=== PATIENT | female | born 1960 | race Caucasian/White ===

== ENCOUNTER 2017-02-14 00:56 | Inpatient (IN) ==
[2017-02-14] MEDS ORDERED: ONDANSETRON 4 MG/2 ML VIAL IV STA ×2 (02:12→03:22)
[2017-02-14] MEDS ORDERED: SODIUM CHLORIDE 0.9% 1,000 ML IV STA (02:12)
[2017-02-14] MEDS ORDERED: ONDANSETRON 4 MG/2 ML VIAL ONE ×2 (02:19→03:22)
[2017-02-14 02:29] LABS: Calcium 9.6 MG/DL (8.5-10.1); Magnesium 2.1 MG/DL (1.8-2.4); Osmolality,Calculated 277.7 MOS/KG (273-304); Potassium 3.3 MMOL/L (3.5-5.1)
[2017-02-14 02:31] LABS: Basophils % 0.3 % (0.0-0.8); Eosinophils % 0.1 % (0.00-10.9); Hemoglobin 15.8 GM/DL (12.0-16.0); Immature Granulocytes % 0.3 %; Immature Granulocytes Absolute 0.04 #; Lymphocytes # 3.3 10*3/uL (1.4-4.0); Lymphocytes % 22.4 % (21.3-54.2); Mean Corpuscular HGB Conc 34.3 GM/DL (32-36); Mean Corpuscular Hemoglobin 30 PG (27-34); Mean Platelet Volume 8.9 FL (9.6-12.0); Monocytes # 0.9 10*3/uL (0.11-0.8); Monocytes % 6.3 % (1.7-12.7); Neutrophils # 10.3 10*3/uL (1.4-7.4); Neutrophils % 70.6 % (38.7-73.9); Platelet Count 600 T/CUMM (130-400); Red Blood Count 5.35 MC/CUMM (3.8-5.5); Red Cell Distribution Width 13.6 % (9.3-17.3); White Blood Count 14.6 T/CUMM (4-12)
[2017-02-14] MEDS: SODIUM CHLORIDE 0.9% 1,000 ML IV SCH ×3 (05:39→23:24)
[2017-02-14] MEDS: POTASSIUM CHLORIDE INJ 10 MEQ in SODIUM CHLORIDE 0.45% 1,000 ML IV SCH ×2 (05:39→16:10)
[2017-02-14] MEDS: KETOROLAC 30 MG/1 ML VIAL IV PRN ×3 (05:48→18:31)
[2017-02-14] MEDS: ONDANSETRON 4 MG/2 ML VIAL IV PRN ×3 (09:59→21:00)
[2017-02-14] MEDS ORDERED: MAGNESIUM SULF RIDER 2 GM in PREMIX 1 EACH IV PRN (14:31)
[2017-02-14] MEDS ORDERED: MAGNESIUM SULF RIDER 4 GM in PREMIX 1 EACH IV PRN (14:31)
[2017-02-14] MEDS: MEROPENEM 1,000 MG in SYRINGE 1 EACH IV SCH (18:25)
[2017-02-14] MEDS: metroNIDAZOLE INJ 500 MG in PREMIX 1 EACH IV SCH ×2 (18:38→21:43)
[2017-02-15] MEDS: KETOROLAC 30 MG/1 ML VIAL IV PRN ×4 (00:31→20:33)
[2017-02-15] MEDS: MEROPENEM 1,000 MG in SYRINGE 1 EACH IV SCH ×3 (00:31→15:01)
[2017-02-15] MEDS: ONDANSETRON 4 MG/2 ML VIAL IV PRN ×5 (01:52→22:32)
[2017-02-15] MEDS: POTASSIUM CHLORIDE INJ 10 MEQ in SODIUM CHLORIDE 0.45% 1,000 ML IV SCH ×2 (02:34→09:11)
[2017-02-15] MEDS: metroNIDAZOLE INJ 500 MG in PREMIX 1 EACH IV SCH ×4 (03:05→20:35)
[2017-02-15] MEDS: SODIUM CHLORIDE 0.9% 1,000 ML IV SCH (04:42)
[2017-02-15 05:42] LABS: Basophils % 0.3 % (0.0-0.8); Eosinophils % 0.2 % (0.00-10.9); Hematocrit 38.9 VOL% (35.7-47.0); Hemoglobin 13.8 GM/DL (12.0-16.0); Immature Granulocytes % 0.3 %; Immature Granulocytes Absolute 0.04 #; Lymphocytes # 3.2 10*3/uL (1.4-4.0); Lymphocytes % 27.3 % (21.3-54.2); Mean Corpuscular HGB Conc 35.5 GM/DL (32-36); Mean Corpuscular Hemoglobin 30 PG (27-34); Mean Corpuscular Volume 84.7 FL (87-102); Mean Platelet Volume 8.7 FL (9.6-12.0); Monocytes # 0.9 10*3/uL (0.11-0.8); Monocytes % 7.2 % (1.7-12.7); Neutrophils # 7.7 10*3/uL (1.4-7.4); Neutrophils % 64.7 % (38.7-73.9); Platelet Count 488 T/CUMM (130-400); Red Blood Count 4.59 MC/CUMM (3.8-5.5); White Blood Count 11.9 T/CUMM (4-12)
[2017-02-15 06:17] LABS: Calcium 8.3 MG/DL (8.5-10.1); Osmolality,Calculated 274.5 MOS/KG (273-304); Potassium 3.2 MMOL/L (3.5-5.1)
[2017-02-15 06:21] LABS: Albumin 3.5 G/DL (3.4-5.0); Calcium 8.5 MG/DL (8.5-10.1); Magnesium 1.9 MG/DL (1.8-2.4); Osmolality,Calculated 274.5 MOS/KG (273-304); Potassium 3.2 MMOL/L (3.5-5.1); Total Protein 7.2 G/DL (6.4-8.3)
[2017-02-15] MEDS: PANTOPRAZOLE 40 MG VIAL IV SCH (08:55)
[2017-02-15] MEDS: POTASSIUM CHLORIDE INJ 40 MEQ in DEXTROSE 5% LACTATED RINGERS 1,000 ML IV SCH ×2 (08:55→17:56)
[2017-02-16] MEDS: MEROPENEM 1,000 MG in SYRINGE 1 EACH IV SCH ×4 (00:08→23:26)
[2017-02-16] MEDS: POTASSIUM CHLORIDE INJ 40 MEQ in DEXTROSE 5% LACTATED RINGERS 1,000 ML IV SCH ×4 (01:40→14:56)
[2017-02-16] MEDS: KETOROLAC 30 MG/1 ML VIAL IV PRN (02:28)
[2017-02-16] MEDS: metroNIDAZOLE INJ 500 MG in PREMIX 1 EACH IV SCH ×4 (02:29→21:32)
[2017-02-16] MEDS: ONDANSETRON 4 MG/2 ML VIAL IV PRN ×4 (05:33→16:58)
[2017-02-16 06:02] LABS: Calcium 8.7 MG/DL (8.5-10.1); Magnesium 1.9 MG/DL (1.8-2.4); Osmolality,Calculated 279.3 MOS/KG (273-304); Potassium 4.1 MMOL/L (3.5-5.1)
[2017-02-16] MEDS: PANTOPRAZOLE 40 MG VIAL IV SCH (08:56)
[2017-02-16] MEDS: PREGABALIN 50 MG CAPSULE PO SCH ×2 (08:56→21:32)
[2017-02-16] MEDS ORDERED: NON-FORMULARY MEDICATION (Dextroamphetamine/Amphetamine [Adderall 20 Mg Tablet] 20 MG) PO SCH (09:00)
[2017-02-16] MEDS ORDERED: clonazePAM 0.5 MG TABLET PO SCH (21:00)
[2017-02-17] MEDS: metroNIDAZOLE INJ 500 MG in PREMIX 1 EACH IV SCH ×2 (02:03→08:00)
[2017-02-17] MEDS: ONDANSETRON 4 MG/2 ML VIAL IV PRN (04:44)
[2017-02-17] MEDS: PREGABALIN 50 MG CAPSULE PO SCH (07:55)
[2017-02-17] MEDS: PANTOPRAZOLE 40 MG VIAL IV SCH (07:56)
[2017-02-17] MEDS: MEROPENEM 1,000 MG in SYRINGE 1 EACH IV SCH (07:57)
[2017-02-17 08:02] VITALS: BP 94/63
[2017-02-17] MEDS: POTASSIUM CHLORIDE INJ 40 MEQ in DEXTROSE 5% LACTATED RINGERS 1,000 ML IV SCH (10:44)
== END 2017-02-17 11:48 | disposition home or self-care (01) | DRG 392 ==
LOC: N.ED 00:56 → SUATTDRO 04:03 → N.EDINP 04:03 → N.3E 05:01
PROVIDERS: ADMIT Internal Medicine Infectious Disease; ATTEND Internal Medicine Cardiovascular Disease

== ENCOUNTER 2020-04-09 03:30 | Inpatient (IN) ==
[2020-04-09] MEDS ORDERED: ACETAMINOPHEN 500 MG TABLET PO STA (03:59)
[2020-04-09] MEDS ORDERED: SODIUM CHLORIDE 0.9% 500 ML IV STA (03:59)
[2020-04-09 04:31] LABS: Basophils # 0.1 10*3/uL (0.0-0.2); Basophils % 0.3 % (0.0-0.8); Hematocrit 43.8 VOL% (35.7-47.0); Hemoglobin 15.2 GM/DL (12.0-16.0); Immature Granulocytes % 0.5 %; Immature Granulocytes Absolute 0.13 #; Lymphocytes # 1.2 10*3/uL (1.4-4.0); Lymphocytes % 4.9 % (21.3-54.2); Mean Corpuscular HGB Conc 34.7 GM/DL (32-36); Mean Corpuscular Volume 87.6 FL (87-102); Mean Platelet Volume 9.6 FL (9.6-12.0); Monocytes % 3.2 % (1.7-12.7); Neutrophils % 91.1 % (38.7-73.9); Platelet Count 349 T/CUMM (130-400); Red Cell Distribution Width 15.3 % (9.3-17.3); White Blood Count 23.9 T/CUMM (4-12)
[2020-04-09] MEDS ORDERED: PIPERACILLIN/TAZOBACTAM 3,375 MG in SODIUM CHLORIDE 0.9% 100 ML IV STA (04:43)
[2020-04-09 04:57] LABS: Barbiturates Screen,Urine Negative (Negative); Benzodiazepines Screen,Urine Negative (Negative); Cannabinoid Screen,Urine Positive (Negative); Opiate Screen,Urine Negative (Negative); Phencyclidine Screen,Urine Negative (Negative)
[2020-04-09 04:58] LABS: Troponin I < 0.015 NG/ML (0.00-0.045)
[2020-04-09 04:59] LABS: Bacteria,Urine Moderate /HPF (Few); Bilirubin,Urine Negative (Negative); Blood, Urine Small mg/dL (Negative); Glucose,Urine (UA) Negative (Negative); Hyaline Casts,Urine 1 /LPF (0-3); Ketones,Urine Negative (Negative); Mucus,Urine Occasional /LPF (Occasional); Nitrite,Urine Positive (Negative); Protein,Urine 100 MG/DL; RBC,Urine 8 /HPF (0-4); Renal Epithelial Cells,Urine Occasional /HPF (<1); Squamous Epithelial Cell,Urine Occasional /HPF (0-10); Transitional Epi Cells,Urine Occasional /HPF (<1); Urine Appearance Slightly Hazy (Clear); Urine Color Amber (Yellow); Urine Specific Gravity 1.019 (1.001-1.035); WBC,Urine 316 /HPF (0-6)
[2020-04-09 05:00] LABS: Albumin 3.6 G/DL (3.4-5.0); Bilirubin,Total 1.5 MG/DL (0.2-1.0); Calcium 9.2 MG/DL (8.5-10.1); Osmolality,Calculated 275.8 MOS/KG (273-304); Potassium 2.7 MMOL/L (3.5-5.1); Total Protein 7.9 G/DL (6.4-8.9)
[2020-04-09] MEDS ORDERED: POTASSIUM CHLORIDE RIDER 20 MEQ in PREMIX 1 EACH IV STA (05:09)
[2020-04-09 05:12] LABS: Lymphocytes 6 % (20-55); Segmented Neutrophils 90 % (50-85); Total Cells Counted 100
[2020-04-09 05:13] LABS: Microcytosis 1+
[2020-04-09] MEDS: POTASSIUM CHLORIDE RIDER 10 MEQ in PREMIX 1 EACH IV SCH ×2 (05:27→06:30)
[2020-04-09] MEDS ORDERED: POTASSIUM CHLORIDE RIDER 10 MEQ in PREMIX 1 EACH IV PRN (05:40)
[2020-04-09] MEDS ORDERED: GLUCAGON 1 MG VIAL IM PRN (05:45)
[2020-04-09] MEDS ORDERED: DEXTROSE 50% 25 GM/50 ML VIAL IV PRN (05:45)
[2020-04-09] MEDS ORDERED: NICOTINE 21 MG/24 HR PATCH TRANSDERM PRN (05:45)
[2020-04-09] MEDS ORDERED: guaiFENesin/DM ER 600-30 MG TABLET PO PRN (05:45)
[2020-04-09] MEDS ORDERED: diphenhydrAMINE CAP 25 MG CAPSULE PO PRN (05:45)
[2020-04-09] MEDS ORDERED: hydrALAZINE 20 MG/1 ML VIAL IV PRN (05:45)
[2020-04-09] MEDS: SODIUM CHLORIDE 0.9% 1,000 ML IV SCH ×3 (05:53→15:05)
[2020-04-09] MEDS: ACETAMINOPHEN 325 MG TABLET PO PRN ×2 (07:43→12:41)
[2020-04-09] MEDS: cefTRIAXone 1,000 MG in SYRINGE 1 EACH IV SCH (08:13)
[2020-04-09 11:58] LABS: Calcium 9.3 MG/DL (8.5-10.1); Osmolality,Calculated 272.1 MOS/KG (273-304); Potassium 2.7 MMOL/L (3.5-5.1)
[2020-04-09] MEDS ORDERED: MAGNESIUM SULF RIDER 2 GM in PREMIX 1 EACH IV PRN (15:03)
[2020-04-09] MEDS ORDERED: MAGNESIUM SULF RIDER 4 GM in PREMIX 1 EACH IV PRN (15:03)
[2020-04-09] MEDS: MORPHINE 4 MG/1 ML VIAL IV PRN ×3 (15:04→23:04)
[2020-04-09] MEDS ORDERED: cefTRIAXone 1,000 MG in SYRINGE 1 EACH IV ONE (15:55)
[2020-04-09] MEDS: POTASSIUM CHLORIDE 20 MEQ TABLET PO PRN (21:30)
[2020-04-10] MEDS: SODIUM CHLORIDE 0.9% 1,000 ML IV SCH (03:15)
[2020-04-10] MEDS: MORPHINE 4 MG/1 ML VIAL IV PRN ×3 (03:15→12:54)
[2020-04-10 05:29] LABS: Hematocrit 39.6 VOL% (35.7-47.0); Immature Granulocytes % 0.2 %; Immature Granulocytes Absolute 0.01 #; Lymphocytes # 0.4 10*3/uL (1.4-4.0); Lymphocytes % 6.8 % (21.3-54.2); Mean Corpuscular HGB Conc 32.8 GM/DL (32-36); Mean Corpuscular Volume 90.6 FL (87-102); Mean Platelet Volume 9.8 FL (9.6-12.0); Monocytes % 3.4 % (1.7-12.7); Neutrophils % 89.6 % (38.7-73.9); Platelet Count 307 T/CUMM (130-400); Red Blood Count 4.37 MC/CUMM (3.8-5.5); Red Cell Distribution Width 15.6 % (9.3-17.3); White Blood Count 5.6 T/CUMM (4-12)
[2020-04-10 05:47] LABS: Calcium 8.3 MG/DL (8.5-10.1); Osmolality,Calculated 291.6 MOS/KG (273-304); Potassium 3.3 MMOL/L (3.5-5.1)
[2020-04-10 05:50] LABS: Albumin 2.3 G/DL (3.4-5.0); Bilirubin,Total 0.7 MG/DL (0.2-1.0); Calcium 8.2 MG/DL (8.5-10.1); Osmolality,Calculated 288.8 MOS/KG (273-304); Potassium 3.4 MMOL/L (3.5-5.1); Total Protein 6.4 G/DL (5.0-7.5)
[2020-04-10] MEDS: POTASSIUM CHLORIDE 20 MEQ TABLET PO PRN (07:57)
[2020-04-10] MEDS: cefTRIAXone 1,000 MG in SYRINGE 1 EACH IV SCH (08:00)
[2020-04-10] MEDS: SODIUM CHLORIDE 0.45% 1,000 ML IV SCH ×2 (09:33→17:18)
[2020-04-10] MEDS: oxyCODONE/ACETAMINOPHEN 5-325 MG TABLET PO PRN ×2 (17:18→22:33)
[2020-04-10] MEDS: DOCUSATE SODIUM 100 MG CAPSULE PO SCH (21:06)
[2020-04-10] MEDS: HYDROmorphone 2 MG/1 ML VIAL IV PRN (21:06)
[2020-04-11 06:02] LABS: Basophils % 0.4 % (0.0-0.8); Eosinophils % 0.6 % (0.00-10.9); Hematocrit 36.4 VOL% (35.7-47.0); Hemoglobin 11.9 GM/DL (12.0-16.0); Immature Granulocytes % 0.3 %; Immature Granulocytes Absolute 0.02 #; Lymphocytes # 1.8 10*3/uL (1.4-4.0); Lymphocytes % 26.3 % (21.3-54.2); Mean Corpuscular HGB Conc 32.7 GM/DL (32-36); Mean Corpuscular Volume 91.2 FL (87-102); Mean Platelet Volume 9.9 FL (9.6-12.0); Monocytes % 10.4 % (1.7-12.7); Platelet Count 324 T/CUMM (130-400); Red Blood Count 3.99 MC/CUMM (3.8-5.5); Red Cell Distribution Width 15.9 % (9.3-17.3); White Blood Count 6.7 T/CUMM (4-12)
[2020-04-11 06:24] LABS: Hypochromasia Slight; Microcytosis Slight; Platelet Estimate Adequate
[2020-04-11 06:27] LABS: Albumin 2.4 G/DL (3.4-5.0); Bilirubin,Total 0.7 MG/DL (0.2-1.0); Calcium 7.8 MG/DL (8.5-10.1); Osmolality,Calculated 287.7 MOS/KG (273-304); Potassium 2.7 MMOL/L (3.5-5.1); Total Protein 6.4 G/DL (5.0-7.5)
[2020-04-11] MEDS: cefTRIAXone 1,000 MG in SYRINGE 1 EACH IV SCH (08:00)
[2020-04-11] MEDS: HYDROmorphone 2 MG/1 ML VIAL IV PRN ×3 (08:03→20:41)
[2020-04-11] MEDS: DOCUSATE SODIUM 100 MG CAPSULE PO SCH ×2 (08:04→23:48)
[2020-04-11] MEDS: oxyCODONE/ACETAMINOPHEN 5-325 MG TABLET PO PRN ×3 (10:04→19:42)
[2020-04-11] MEDS: SODIUM CHLORIDE 0.45% 1,000 ML IV SCH (14:58)
[2020-04-12] MEDS: oxyCODONE/ACETAMINOPHEN 5-325 MG TABLET PO PRN ×5 (00:01→22:33)
[2020-04-12] MEDS: SODIUM CHLORIDE 0.45% 1,000 ML IV SCH ×4 (01:21→16:08)
[2020-04-12] MEDS: HYDROmorphone 2 MG/1 ML VIAL IV PRN ×4 (01:21→15:17)
[2020-04-12] MEDS: cefTRIAXone 1,000 MG in SYRINGE 1 EACH IV SCH (08:27)
[2020-04-12] MEDS: DOCUSATE SODIUM 100 MG CAPSULE PO SCH ×2 (08:27→22:33)
[2020-04-12] MEDS ORDERED: NITROFURANTOIN MACRO/MONO 100 MG CAPSULE PO SCH (09:30)
[2020-04-12] MEDS: ONDANSETRON 4 MG/2 ML VIAL IV PRN (11:18)
[2020-04-12] MEDS: CEFEPIME 1,000 MG in SODIUM CHLORIDE 0.9% 100 ML IV SCH ×2 (16:08→23:34)
[2020-04-13] MEDS: HYDROmorphone 2 MG/1 ML VIAL IV PRN ×6 (01:58→22:34)
[2020-04-13] MEDS: CEFEPIME 1,000 MG in SODIUM CHLORIDE 0.9% 100 ML IV SCH ×2 (03:50→09:19)
[2020-04-13] MEDS: SODIUM CHLORIDE 0.45% 1,000 ML IV SCH ×3 (03:50→18:24)
[2020-04-13 06:08] LABS: Basophils % 0.5 % (0.0-0.8); Eosinophils # 0.1 10*3/uL (0.0-0.87); Eosinophils % 1.4 % (0.00-10.9); Hematocrit 40.2 VOL% (35.7-47.0); Hemoglobin 13.8 GM/DL (12.0-16.0); Immature Granulocytes % 0.3 %; Immature Granulocytes Absolute 0.02 #; Lymphocytes # 2.6 10*3/uL (1.4-4.0); Lymphocytes % 33.3 % (21.3-54.2); Mean Corpuscular HGB Conc 34.3 GM/DL (32-36); Mean Corpuscular Volume 86.1 FL (87-102); Mean Platelet Volume 9.3 FL (9.6-12.0); Monocytes % 14.3 % (1.7-12.7); Neutrophils % 50.2 % (38.7-73.9); Platelet Count 380 T/CUMM (130-400); Red Blood Count 4.67 MC/CUMM (3.8-5.5); Red Cell Distribution Width 15.4 % (9.3-17.3); White Blood Count 7.7 T/CUMM (4-12)
[2020-04-13 06:22] LABS: Calcium 8.2 MG/DL (8.5-10.1); Osmolality,Calculated 279.1 MOS/KG (273-304)
[2020-04-13 06:31] LABS: Hypochromasia 1+; Microcytosis 1+; Platelet Estimate Adequate
[2020-04-13] MEDS: ONDANSETRON 4 MG/2 ML VIAL IV PRN (09:34)
[2020-04-13] MEDS: DOCUSATE SODIUM 100 MG CAPSULE PO SCH ×2 (10:30→20:50)
[2020-04-13] MEDS: POTASSIUM CHLORIDE 20 MEQ TABLET PO PRN ×4 (11:27→20:52)
[2020-04-13] MEDS: oxyCODONE/ACETAMINOPHEN 5-325 MG TABLET PO PRN ×3 (11:30→20:50)
[2020-04-13] MEDS: AMIKACIN IV SCH (14:26)
[2020-04-13] MEDS: SODIUM CHLORIDE 0.9% IV SCH (14:26)
[2020-04-13] MEDS: ZALEPLON 5 MG CAPSULE PO PRN (20:50)
[2020-04-14] MEDS: SODIUM CHLORIDE 0.45% 1,000 ML IV SCH ×4 (01:17→20:01)
[2020-04-14] MEDS: HYDROmorphone 2 MG/1 ML VIAL IV PRN ×5 (02:00→21:52)
[2020-04-14] MEDS: ONDANSETRON 4 MG/2 ML VIAL IV PRN (02:30)
[2020-04-14 06:14] LABS: Basophils # 0.1 10*3/uL (0.0-0.2); Basophils % 0.7 % (0.0-0.8); Eosinophils # 0.2 10*3/uL (0.0-0.87); Eosinophils % 2.2 % (0.00-10.9); Hematocrit 38.3 VOL% (35.7-47.0); Hemoglobin 13.2 GM/DL (12.0-16.0); Immature Granulocytes % 0.3 %; Immature Granulocytes Absolute 0.02 #; Lymphocytes # 2.6 10*3/uL (1.4-4.0); Lymphocytes % 37.9 % (21.3-54.2); Mean Corpuscular HGB Conc 34.5 GM/DL (32-36); Mean Corpuscular Volume 86.5 FL (87-102); Mean Platelet Volume 9.3 FL (9.6-12.0); Monocytes % 9.2 % (1.7-12.7); Neutrophils % 49.7 % (38.7-73.9); Platelet Count 383 T/CUMM (130-400); Red Blood Count 4.43 MC/CUMM (3.8-5.5); Red Cell Distribution Width 15.6 % (9.3-17.3); White Blood Count 6.9 T/CUMM (4-12)
[2020-04-14 06:39] LABS: Calcium 8.2 MG/DL (8.5-10.1); Osmolality,Calculated 279.1 MOS/KG (273-304); Potassium 3.7 MMOL/L (3.5-5.1)
[2020-04-14] MEDS: oxyCODONE/ACETAMINOPHEN 5-325 MG TABLET PO PRN ×3 (07:35→20:00)
[2020-04-14] MEDS: DOCUSATE SODIUM 100 MG CAPSULE PO SCH ×2 (09:07→20:00)
[2020-04-14] MEDS: AMIKACIN IV SCH (12:55)
[2020-04-14] MEDS: SODIUM CHLORIDE 0.9% IV SCH (12:55)
[2020-04-14] MEDS: ZALEPLON 5 MG CAPSULE PO PRN (21:52)
[2020-04-15] MEDS: HYDROmorphone 2 MG/1 ML VIAL IV PRN ×4 (03:11→17:50)
[2020-04-15] MEDS: SODIUM CHLORIDE 0.45% 1,000 ML IV SCH ×2 (04:36→13:54)
[2020-04-15 06:10] LABS: Basophils # 0.1 10*3/uL (0.0-0.2); Basophils % 0.6 % (0.0-0.8); Eosinophils # 0.3 10*3/uL (0.0-0.87); Eosinophils % 2.7 % (0.00-10.9); Hematocrit 40.5 VOL% (35.7-47.0); Hemoglobin 13.7 GM/DL (12.0-16.0); Immature Granulocytes % 0.4 %; Immature Granulocytes Absolute 0.04 #; Lymphocytes # 3.2 10*3/uL (1.4-4.0); Lymphocytes % 30.5 % (21.3-54.2); Mean Corpuscular HGB Conc 33.8 GM/DL (32-36); Mean Corpuscular Volume 88.2 FL (87-102); Mean Platelet Volume 9.1 FL (9.6-12.0); Neutrophils % 58.8 % (38.7-73.9); Platelet Count 449 T/CUMM (130-400); Red Blood Count 4.59 MC/CUMM (3.8-5.5); Red Cell Distribution Width 15.1 % (9.3-17.3); White Blood Count 10.6 T/CUMM (4-12)
[2020-04-15 06:31] LABS: Calcium 8.8 MG/DL (8.5-10.1); Osmolality,Calculated 275.4 MOS/KG (273-304); Potassium 3.3 MMOL/L (3.5-5.1)
[2020-04-15 06:34] LABS: Hypochromasia Slight; Microcytosis Slight; Platelet Estimate Adequate
[2020-04-15] MEDS: POTASSIUM CHLORIDE 20 MEQ TABLET PO PRN ×3 (08:40→15:06)
[2020-04-15] MEDS: DOCUSATE SODIUM 100 MG CAPSULE PO SCH ×2 (08:42→20:53)
[2020-04-15] MEDS: oxyCODONE/ACETAMINOPHEN 5-325 MG TABLET PO PRN ×3 (10:54→20:51)
[2020-04-15] MEDS: AMIKACIN IV SCH (13:53)
[2020-04-15] MEDS: SODIUM CHLORIDE 0.9% IV SCH (13:53)
[2020-04-16] MEDS: POTASSIUM CHLORIDE 20 MEQ TABLET PO PRN ×2 (00:07→03:13)
[2020-04-16] MEDS: HYDROmorphone 2 MG/1 ML VIAL IV PRN ×3 (00:07→12:59)
[2020-04-16] MEDS: SODIUM CHLORIDE 0.45% 1,000 ML IV SCH ×3 (00:18→09:35)
[2020-04-16] MEDS: oxyCODONE/ACETAMINOPHEN 5-325 MG TABLET PO PRN (03:15)
[2020-04-16] MEDS: DOCUSATE SODIUM 100 MG CAPSULE PO SCH (09:28)
[2020-04-16 15:20] VITALS: BP 130/63
[2020-04-17] MEDS ORDERED: AMIKACIN IV SCH (09:00)
[2020-04-17] MEDS ORDERED: SODIUM CHLORIDE 0.9% IV SCH (09:00)
== END 2020-04-16 15:27 | disposition home health service (06) | DRG 660 ==
LOC: N.EDINP 03:30 → N.ED 03:30 → N.5E 07:10 → SUATTDRO 04-10 09:27
PROVIDERS: ADMIT Internal Medicine; ATTEND Internal Medicine

== ENCOUNTER 2020-06-17 16:26 | Observation (INO) ==
[2020-06-17] MEDS ORDERED: SODIUM CHLORIDE 0.9% 1,000 ML IV STA (16:47)
[2020-06-17] MEDS ORDERED: ONDANSETRON 4 MG/2 ML VIAL IV STA (16:47)
[2020-06-17 16:54] LABS: Bilirubin,Urine Negative (Negative); Blood, Urine Negative (Negative); Glucose,Urine (UA) Negative (Negative); Hyaline Casts,Urine 9 /LPF (0-3); Ketones,Urine Negative (Negative); Mucus,Urine Moderate /LPF (Occasional); Nitrite,Urine Negative (Negative); Protein,Urine 30 MG/DL; RBC,Urine 3 /HPF (0-4); Squamous Epithelial Cell,Urine Occasional /HPF (0-10); Urine Appearance CLEAR (Clear); Urine Color Yellow (Yellow); Urine Specific Gravity 1.014 (1.001-1.035); Urine Urobilinogen < 2.0 EU/DL (0.2-1.0)
[2020-06-17 17:32] LABS: Basophils # 0.1 10*3/uL (0.0-0.2); Basophils % 0.5 % (0.0-0.8); Eosinophils % 0.4 % (0.00-10.9); Hematocrit 41.1 VOL% (35.7-47.0); Hemoglobin 14.7 GM/DL (12.0-16.0); Immature Granulocytes % 0.1 %; Immature Granulocytes Absolute 0.01 #; Lymphocytes # 2.5 10*3/uL (1.4-4.0); Lymphocytes % 24.6 % (21.3-54.2); Mean Corpuscular HGB Conc 35.8 GM/DL (32-36); Mean Corpuscular Volume 83.9 FL (87-102); Monocytes % 7.1 % (1.7-12.7); Neutrophils % 67.3 % (38.7-73.9); Platelet Count 510 T/CUMM (130-400); Red Cell Distribution Width 14.6 % (9.3-17.3); White Blood Count 10.2 T/CUMM (4-12)
[2020-06-17 18:02] LABS: Albumin 3.6 G/DL (3.4-5.0); Bilirubin,Total 0.9 MG/DL (0.2-1.0); Osmolality,Calculated 281.1 MOS/KG (273-304)
[2020-06-17] MEDS ORDERED: cefTRIAXone 1,000 MG in SODIUM CHLORIDE 0.9% 100 ML IV STA (18:08)
[2020-06-17] MEDS ORDERED: cefTRIAXone 1,000 MG VIAL ONE (19:15)
[2020-06-17] MEDS: POTASSIUM CHLORIDE RIDER 10 MEQ in PREMIX 1 EACH IV SCH ×2 (20:21→22:39)
[2020-06-17] MEDS ORDERED: GLUCAGON 1 MG VIAL IM PRN (20:31)
[2020-06-17] MEDS ORDERED: ACETAMINOPHEN 325 MG TABLET PO PRN (20:31)
[2020-06-17] MEDS ORDERED: DEXTROSE 50% 25 GM/50 ML VIAL IV PRN (20:31)
[2020-06-17] MEDS: ONDANSETRON 4 MG/2 ML VIAL IV PRN (21:25)
[2020-06-17] MEDS: MORPHINE 4 MG/1 ML VIAL IV PRN (21:26)
[2020-06-17 21:46] LABS: Barbiturates Screen,Urine Negative (Negative); Benzodiazepines Screen,Urine Positive (Negative); Cannabinoid Screen,Urine Positive (Negative); Opiate Screen,Urine Positive (Negative); Phencyclidine Screen,Urine Negative (Negative)
[2020-06-17] MEDS: GABAPENTIN 300 MG CAPSULE PO SCH (21:46)
[2020-06-17] MEDS: TAMSULOSIN 0.4 MG CAPSULE PO SCH (21:47)
[2020-06-17] MEDS: ENOXAPARIN 40 MG/0.4 ML SYRINGE SUBCUT SCH (21:47)
[2020-06-17] MEDS: cephALEXin 500 MG CAPSULE PO SCH (22:01)
[2020-06-17] MEDS: oxyCODONE/ACETAMINOPHEN 5-325 MG TABLET PO PRN (23:32)
[2020-06-18] MEDS: POTASSIUM CHLORIDE INJ 10 MEQ in SODIUM CHLORIDE 0.9% 1,000 ML IV SCH ×2 (00:03→08:57)
[2020-06-18] MEDS: POTASSIUM CHLORIDE RIDER 10 MEQ in PREMIX 1 EACH IV SCH ×6 (00:03→16:27)
[2020-06-18 06:39] LABS: Albumin 2.5 G/DL (3.4-5.0); Bilirubin,Total 0.7 MG/DL (0.2-1.0); Calcium 7.8 MG/DL (8.5-10.1); Osmolality,Calculated 283.8 MOS/KG (273-304); Risk Ratio 4.09; Total Protein 5.5 G/DL (6.4-8.2); VLDL CHOLESTEROL 28.2 MG/DL
[2020-06-18 06:49] LABS: Potassium 2.4 MMOL/L (3.5-5.1)
[2020-06-18 06:55] LABS: Basophils % 0.5 % (0.0-0.8); Eosinophils # 0.1 10*3/uL (0.0-0.87); Eosinophils % 1.6 % (0.00-10.9); Hematocrit 31.6 VOL% (35.7-47.0); Immature Granulocytes % 0.1 %; Immature Granulocytes Absolute 0.01 #; Lymphocytes # 3.7 10*3/uL (1.4-4.0); Mean Corpuscular HGB Conc 35.4 GM/DL (32-36); Mean Corpuscular Volume 85.9 FL (87-102); Monocytes % 7.8 % (1.7-12.7); Red Cell Distribution Width 14.9 % (9.3-17.3)
[2020-06-18 06:58] LABS: Hemoglobin 11.2 GM/DL (12.0-16.0); Platelet Count 353 T/CUMM (130-400); Red Blood Count 3.68 MC/CUMM (3.8-5.5)
[2020-06-18 07:14] LABS: Calcium 9.3 MG/DL (8.5-10.1); Potassium 2.2 MMOL/L (3.5-5.1)
[2020-06-18] MEDS ORDERED: POTASSIUM CHLORIDE 20 MEQ TABLET PO ONE (07:16)
[2020-06-18] MEDS: MORPHINE 4 MG/1 ML VIAL IV PRN ×3 (08:04→23:36)
[2020-06-18] MEDS: VENLAFAXINE XR 75 MG CAPSULE PO SCH (08:07)
[2020-06-18] MEDS: PANTOPRAZOLE 40 MG TABLET PO SCH (08:07)
[2020-06-18] MEDS: cephALEXin 500 MG CAPSULE PO SCH (08:07)
[2020-06-18] MEDS: GABAPENTIN 300 MG CAPSULE PO SCH ×3 (08:07→20:48)
[2020-06-18] MEDS: oxyCODONE/ACETAMINOPHEN 5-325 MG TABLET PO PRN ×2 (11:34→20:48)
[2020-06-18 12:30] LABS: Calcium 8.1 MG/DL (8.5-10.1); Osmolality,Calculated 288.6 MOS/KG (273-304); Potassium 3.3 MMOL/L (3.5-5.1)
[2020-06-18] MEDS: ENOXAPARIN 40 MG/0.4 ML SYRINGE SUBCUT SCH (20:48)
[2020-06-18] MEDS: TAMSULOSIN 0.4 MG CAPSULE PO SCH (20:48)
[2020-06-19] MEDS: oxyCODONE/ACETAMINOPHEN 5-325 MG TABLET PO PRN ×2 (03:12→08:56)
[2020-06-19 05:39] LABS: Calcium 8.1 MG/DL (8.5-10.1); Osmolality,Calculated 288.6 MOS/KG (273-304); Potassium 3.4 MMOL/L (3.5-5.1)
[2020-06-19] MEDS ORDERED: DEXT 5% NACL 0.9% KCL 20 MEQ 20 MEQ/1,000 ML BAG IV SCH (08:00)
[2020-06-19] MEDS: VENLAFAXINE XR 75 MG CAPSULE PO SCH (08:55)
[2020-06-19] MEDS: PANTOPRAZOLE 40 MG TABLET PO SCH (08:56)
[2020-06-19] MEDS: GABAPENTIN 300 MG CAPSULE PO SCH ×2 (08:56→16:33)
[2020-06-19] MEDS: ONDANSETRON 4 MG/2 ML VIAL IV PRN (12:42)
[2020-06-19] MEDS: MORPHINE 4 MG/1 ML VIAL IV PRN (12:42)
[2020-06-19 15:06] VITALS: BP 91/61
== END 2020-06-19 17:46 | disposition home or self-care (01) ==
LOC: N.EDINP 16:26 → N.ED 16:26 → N.5E 21:32
PROVIDERS: ADMIT Internal Medicine; ATTEND Internal Medicine

== ENCOUNTER 2020-06-22 22:24 | Inpatient (IN) ==
[2020-06-22] MEDS ORDERED: SODIUM CHLORIDE 0.9% 1,000 ML IV STA (23:00)
[2020-06-22 23:07] LABS: Basophils # 0.1 10*3/uL (0.0-0.2); Basophils % 0.6 % (0.0-0.8); Eosinophils # 0.2 10*3/uL (0.0-0.87); Eosinophils % 2.2 % (0.00-10.9); Hematocrit 36.4 VOL% (35.7-47.0); Hemoglobin 12.6 GM/DL (12.0-16.0); Immature Granulocytes % 0.5 %; Immature Granulocytes Absolute 0.05 #; Lymphocytes # 3.6 10*3/uL (1.4-4.0); Mean Corpuscular HGB Conc 34.6 GM/DL (32-36); Mean Corpuscular Volume 88.3 FL (87-102); Mean Platelet Volume 9.7 FL (9.6-12.0); Monocytes % 5.6 % (1.7-12.7); Neutrophils % 58.1 % (38.7-73.9); Platelet Count 375 T/CUMM (130-400); Red Blood Count 4.12 MC/CUMM (3.8-5.5); Red Cell Distribution Width 14.6 % (9.3-17.3); White Blood Count 10.9 T/CUMM (4-12)
[2020-06-22 23:18] LABS: INR 1.1; PT Patient Result 11.8 SECS (10.5-12.0)
[2020-06-22 23:25] LABS: Albumin 3.5 G/DL (3.4-5.0); Bilirubin,Total 0.6 MG/DL (0.2-1.0); Calcium 8.5 MG/DL (8.5-10.1); Osmolality,Calculated 279.4 MOS/KG (273-304); Potassium 2.7 MMOL/L (3.5-5.1); Total Protein 6.9 G/DL (6.4-8.2)
[2020-06-23] MEDS ORDERED: DEXT 5% NACL 0.45% KCL 40 MEQ 40 MEQ/1,000 ML BAG IV SCH (00:30)
[2020-06-23] MEDS: traMADol 50 MG TABLET PO PRN ×2 (02:16→21:58)
[2020-06-23] MEDS ORDERED: POTASSIUM CHLORIDE 20 MEQ TABLET PO PRN (02:36)
[2020-06-23] MEDS ORDERED: MAGNESIUM SULF RIDER 2 GM/50 ML PREMIX IV PRN (02:38)
[2020-06-23] MEDS ORDERED: POTASSIUM CHLORIDE 20 MEQ TABLET PO STA (02:38)
[2020-06-23] MEDS ORDERED: MAGNESIUM SULF RIDER 4 GM/100 ML PREMIX IV PRN (02:38)
[2020-06-23] MEDS ORDERED: DEXTROSE 50% 25 GM/50 ML VIAL IV PRN (02:39)
[2020-06-23] MEDS ORDERED: DOCUSATE SODIUM 100 MG CAPSULE PO PRN (02:39)
[2020-06-23] MEDS ORDERED: GLUCAGON 1 MG VIAL IM PRN (02:39)
[2020-06-23] MEDS ORDERED: ACETAMINOPHEN 325 MG TABLET PO PRN (02:39)
[2020-06-23] MEDS ORDERED: MORPHINE 4 MG/1 ML VIAL IV STA (03:15)
[2020-06-23] MEDS ORDERED: MORPHINE 4 MG/1 ML VIAL ONE (03:17)
[2020-06-23] MEDS: ONDANSETRON 4 MG/2 ML VIAL IV PRN ×2 (03:23→21:58)
[2020-06-23] MEDS: SODIUM CHLORIDE 0.9% 1,000 ML IV SCH ×3 (04:28→19:48)
[2020-06-23 07:58] LABS: Calcium 8.1 MG/DL (8.5-10.1); Osmolality,Calculated 282.3 MOS/KG (273-304); Potassium 3.1 MMOL/L (3.5-5.1)
[2020-06-23 08:01] LABS: Risk Ratio 4.37; VLDL CHOLESTEROL 26.4 MG/DL
[2020-06-23] MEDS ORDERED: diphenhydrAMINE CAP 50 MG CAPSULE PO ONE (08:39)
[2020-06-23] MEDS ORDERED: ceFAZolin 1,000 MG VIAL IRRIG ONE (08:39)
[2020-06-23] MEDS ORDERED: DIAZEPAM 5 MG TABLET PO ONE (08:39)
[2020-06-23] MEDS ORDERED: POTASSIUM CHLORIDE 20 MEQ TABLET PO ONE (08:45)
[2020-06-23] MEDS: FLUTICASONE 50 MCG NASAL SPRAY 16 GM BOTTLE BOTH NARES SCH ×2 (09:21→20:55)
[2020-06-23] MEDS ORDERED: MIDAZOLAM 2 MG/2 ML VIAL ONE ×2 (11:15→11:45)
[2020-06-23] MEDS ORDERED: LIDOCAINE 1% 20 ML VIAL ONE (11:15)
[2020-06-23] MEDS ORDERED: ceFAZolin 1,000 MG VIAL ONE (11:16)
[2020-06-23] MEDS ORDERED: fentaNYL 100 MCG/2 ML VIAL ONE (11:16)
[2020-06-23] MEDS ORDERED: methylPREDNISolone SOD SUC 125 MG/2 ML VIAL ONE (11:25)
[2020-06-23] MEDS ORDERED: HYDROmorphone 2 MG/1 ML VIAL ONE (11:27)
[2020-06-23] MEDS ORDERED: TISSUE ADHESIVE 1 EACH APPLICATOR TOP ONE (11:52)
[2020-06-23] MEDS ORDERED: diphenhydrAMINE 50 MG/1 ML VIAL ONE (11:54)
[2020-06-23] MEDS ORDERED: MORPHINE 4 MG/1 ML VIAL IV ONE (14:53)
[2020-06-24] MEDS ORDERED: MORPHINE 4 MG/1 ML VIAL IV ONE (02:25)
[2020-06-24] MEDS: ONDANSETRON 4 MG/2 ML VIAL IV PRN ×3 (02:33→13:03)
[2020-06-24 05:54] LABS: Basophils % 0.1 % (0.0-0.8); Hematocrit 33.3 VOL% (35.7-47.0); Immature Granulocytes % 0.6 %; Immature Granulocytes Absolute 0.07 #; Lymphocytes % 8.8 % (21.3-54.2); Mean Platelet Volume 10.1 FL (9.6-12.0); Neutrophils % 88.5 % (38.7-73.9); Platelet Count 344 T/CUMM (130-400); Red Blood Count 3.66 MC/CUMM (3.8-5.5); Red Cell Distribution Width 14.5 % (9.3-17.3); White Blood Count 11.6 T/CUMM (4-12)
[2020-06-24 06:19] LABS: Calcium 8.7 MG/DL (8.5-10.1); Osmolality,Calculated 283.1 MOS/KG (273-304); Potassium 4.1 MMOL/L (3.5-5.1)
[2020-06-24] MEDS: BUTALBITAL/ACETAMIN/CAFFEINE 50-325-40 MG TABLET PO PRN (08:40)
[2020-06-24] MEDS: FLUTICASONE 50 MCG NASAL SPRAY 16 GM BOTTLE BOTH NARES SCH ×2 (08:43→21:24)
[2020-06-24] MEDS ORDERED: SUMAtriptan 6 MG/0.5 ML VIAL SUBCUT ONE (11:48)
[2020-06-24] MEDS: SODIUM CHLORIDE 0.9% 1,000 ML IV SCH (12:56)
[2020-06-24] MEDS: oxyCODONE/ACETAMINOPHEN 5-325 MG TABLET PO PRN ×3 (13:05→23:03)
[2020-06-24] MEDS: VENLAFAXINE 75 MG TABLET PO SCH ×2 (18:05→18:12)
[2020-06-24] MEDS ORDERED: TAMSULOSIN 0.4 MG CAPSULE PO SCH (21:00)
[2020-06-24] MEDS ORDERED: PANTOPRAZOLE 40 MG TABLET PO SCH (21:00)
[2020-06-24] MEDS: GABAPENTIN 300 MG CAPSULE PO SCH (21:23)
[2020-06-25] MEDS: BUTALBITAL/ACETAMIN/CAFFEINE 50-325-40 MG TABLET PO PRN (01:14)
[2020-06-25] MEDS: ONDANSETRON 4 MG/2 ML VIAL IV PRN (01:14)
[2020-06-25] MEDS: oxyCODONE/ACETAMINOPHEN 5-325 MG TABLET PO PRN ×4 (04:54→17:32)
[2020-06-25 05:31] LABS: Calcium 8.1 MG/DL (8.5-10.1); Potassium 3.7 MMOL/L (3.5-5.1)
[2020-06-25] MEDS ORDERED: COSYNTROPIN 0.25 MG VIAL IV ONE (09:00)
[2020-06-25] MEDS: GABAPENTIN 300 MG CAPSULE PO SCH ×2 (09:07→15:24)
[2020-06-25] MEDS: VENLAFAXINE 75 MG TABLET PO SCH (09:07)
[2020-06-25] MEDS: FLUTICASONE 50 MCG NASAL SPRAY 16 GM BOTTLE BOTH NARES SCH (09:17)
[2020-06-25 12:08] VITALS: BP 113/76
== END 2020-06-25 18:30 | disposition home or self-care (01) | DRG 259 ==
LOC: N.EDINP 22:24 → N.ED 22:24 → N.EDINP 06-23 03:23 → N.TELEN 06-23 03:39 → SUATTDRO 06-23 09:08
PROVIDERS: ADMIT Internal Medicine; ATTEND Family Medicine